=== PATIENT | male | born 1985 | race Two or more races ===

== ENCOUNTER → 2018-01-20 14:21 | Outpatient (CLI) | payer OTHER, SELFPAY ==
--- NOTE | 2018-01-20 14:31 | RAD_ITS ---
HISTORY: inflammatory polyarthropathy COMPARISON: None FINDINGS: AP Pelvis: 2 views No fracture or acute disease. No suspicious bony lesion. The sacroiliac and hip joints appear preserved. No ankylosis. No bony erosions identified. As visualized, the soft tissues are negative. RAD/Pelvis 1 or 2 Views IMPRESSION: 1. Negative exam. No bony erosions or significant arthritis identified. 2. If there remains clinical suspicion, further correlation with pelvic CT could be obtained. at 0457 Reported and signed by: Mitul Robles MD Electronically Signed: Mitul Robles, at 4:55 EST Tel , Service support ,
[2018-01-20 16:06] LABS: Absolute Neutrophil Count 3.9 X10^3/uL (2.0-7.7); Basophil# 0.02 X10^3/uL; Basophil% 0.3 % (0-1); Eosinophil# 0.05 X10^3/uL; Eosinophils% 0.8 % (0-5); Hematocrit 46.4 % (40-54); Hemoglobin 15.9 g/dl (13.0-16.5); Lymphocyte % 21.8 % (19-41); Mean Corp Hgb Conc 34.3 g/gl (32-36); Mean Corpuscular Hgb 30.5 pg (27.0-32.0); Mean Corpuscular Volume 88.9 fL (80-94); Mean Platelet Vol. 9.9 fl (6.2-12.0); Monocyte% 11.8 % (0-10); Neutrophil # 3.87 X10^3/uL (2.7-7.7); Neutrophil % 65.1 % (47-70); Platelet Count 287 K/mm3 (150-450); RBC Distribution Width SD 38.8 fl (35.1-43.9); Red Blood Count 5.22 M/mm3 (4.6-6.2)
[2018-01-20 16:17] LABS: ALB/GLOB Ratio 1.4 RATIO (0.9-2.4); AST(SGOT) 20 U/L (15-37); Alanine Aminotransfer ALT/SGPT 29 U/L (16-61); Albumin, Serum 4.6 g/dL (3.2-5.0); Alkaline Phosphatase 71 U/L (45-117); Anion Gap 8 (5-15); BUN 10 mg/dL (7-18); CRP < 2.90 mg/L (0.0-3.0); Calcium,Total 9.3 mg/dL (8.5-10.1); Chloride 104 mmol/L (98-107); Creatinine, Serum 0.77 mg/dL (0.70-1.30); EST Glomerular Filtration Rate 123 mL/min (>60); Est Glom Filt Rate - Afr Amer 149 mL/min (>60); Globulin 3.4 g/dL (2.2-4.2); Glucose 87 mg/dL (74-106); Potassium 3.8 mmol/L (3.5-5.1); Rheumatoid Factor < 10.0 IU/mL (<15); Sodium Level 142 mmol/L (136-145)
[2018-01-20 16:20] LABS: Erythrocyte Sedimentation Rate 2 mm/hr (0-15)
[2018-01-20 16:40] LABS: POSITIVE COUNT NO; POSITIVE DIFFERENTIAL NO; POSITIVE MORPHOLOGY NO
[2018-01-23 17:13] LABS: ANTINUCLEAR ANTIBODIES DIRECT Negative (Negative)
[2018-01-25 19:44] LABS: CCP IgG Antibodies 7 units (0-19); HEPATITIS B SURFACE AG Negative (Negative); HLA B27 Negative (.); Hep B Surface Antibodies Non Reactive (.); Hep C Antibodies <0.1 s/co ratio (0.0-0.9)
== END ==
PROVIDERS: Family Provider Family Medicine; PCP Family Medicine; Referring Provider Internal Medicine Rheumatology; Visit Provider Internal Medicine Rheumatology
DX: M06.4 Inflammatory polyarthropathy (principal); Q66.7 Congenital pes cavus
CPT/HCPCS: 36415; 72170; 80053; 81374; 85025; 85652; 86038; 86140; 86200; 86431; 86706; 86803; 87340